=== PATIENT | female | born 1945 | race Hispanic/Latino ===

== ENCOUNTER 2017-06-19 17:19 | Emergency (ER) | payer OTHER ==
[~2017-06-19] VITALS: Ht 157.5 cm; Wt 83.5 kg
[2017-06-19 18:19] LABS: ABSOLUTE BASOPHIL COUNT 0 /CUMM (0.0-0.2); ABSOLUTE EOSINOPHIL COUNT 0 /CUMM (0.0-0.7); ABSOLUTE GRANULOCYTE CT 2.1 /CUMM (1.4-6.5); ABSOLUTE LYMPH COUNT 1.1 /CUMM (1.2-3.4); ABSOLUTE MONOCYTE COUNT 0.2 /CUMM (0.10-0.60); BASOPHIL % 1.1 % (0.0-2.0); EOSINOPHIL % 1.2 % (0-5); GRANULOCYTE % 59.3 % (42.2-75.2); HEMATOCRIT 40.5 % (37-47); MEAN CORPUSCULAR HGB 28.1 PG (27.0-31.0); MEAN CORPUSCULAR HGB CONC 34.8 G/DL (33.0-37.0); MEAN CORPUSCULAR VOLUME 80.7 FL (81.0-99.0); MEAN PLATELET VOLUME 7.7 FL (7.4-10.4); PLATELET COUNT 186 /CUMM (130-400); RBC DISTRIBUTION WIDTH 14.5 % (11.5-14.5); RED BLOOD CELL CT 5.01 /CUMM (4.20-5.40); WHITE BLOOD CELL COUNT 3.6 /CUMM (4.8-10.8)
--- NOTE | 2017-06-19 20:39 | ED GENERAL ADULT ---
History of Present Illness General Chief Complaint: General Adult Stated Complaint: PT WAS SIB WALK IN FOR HYPERTENSION 210/100 Source: patient, family Exam Limitations: no limitations Vital Signs & Intake/Output Vital Signs & Intake/Output Vital Signs Date Time Temp Pulse Resp B/P B/P Pulse O2 O2 Flow FiO2 Mean Ox Delivery Rate 06/19 2228 Room Air 06/19 2228 97.6 76 16 172/88 97 Room Air 06/19 2100 147/66 06/19 1746 98.4 70 20 198/84 97 Room Air Allergies Uncoded Allergies: PCN (Intermediate, RASH 06/19/17) Triage Note: SEEN AT [facility] FOR CAT SCRATCH TO LEFT LOWER LEG. SENT FOR HIGH BLOOD PRESSURE, 230/110. DENIES HEADACHE, DIZZINESS OR CHEST PAIN. Triage Nurses Notes Reviewed? yes Onset: Just prior to arrival Duration: day(s): Timing: recent history Injury Environment: urgent care Severity: mild No Modifying Factors: none HPI: Patient is a 71-year-old female with history of diabetes, hypertension presenting to our emergency Department from [facility] for hypertension. Patient was seen and evaluated at [facility] for a cat scratch on her left lower leg in about one week ago. She reports that it was from a neighborhood cat that roams the street. Unsure of vaccine status of the. Patient is up-to- date with tetanus. When patient arrives admin express her blood pressure was extremely elevated so they decided to send her in for evaluation. Patient denies headaches visual changes chest pain palpitations or shortness of breath. Patient has history of chest pressure goes up when she goes to the doctor's office. Patient recently moved to [place] from [place]. Currently establishing primary care physicians. Patient denies any weakness or malaise no numbness or tingling. Denies confusion. Patient reports she's had called her medications this morning. (Tatyana Hinkle) Past History Travel History Traveled to [place] past 21 day No Medical History Any Pertinent Medical History? see below for history EENT: cataracts Cardiovascular: hypertension Endocrine: diabetes Surgical History Surgical History: cataract removal Psychosocial History What is your primary language Sami Tobacco Use: Never used ETOH Use: denies use Family History Hx Contributory? No (Tatyana Hinkle) Review of Systems Review of Systems Constitutional: Reports: no symptoms. Comments Review of systems: See HPI, All other systems negative. Constitutional, no chills fever or weight loss HEENT: No visual changes no sore throat no congestion Cardiovascular: No chest pain ,palpitation , orthopnea or ankle swelling Skin, no jaundice Respiratory: No dyspnea cough sputum or hemoptysis GI: No nausea no vomiting : No dysuria No hematuria Muscle skeletal: no back pain, no neck pain, Neurologic: No numbness no confusion, no headaches Psych: No stress anxiety or depression,. Heme/endocrine: No bruising no bleeding no polyuria or polydipsia Immunology: No splenectomy or history of AIDS (Tatyana Hinkle) Physical Exam Physical Exam General Appearance: well developed/nourished, no apparent distress, alert, awake , comfortable Comments: Well-developed well-nourished person in no acute distress HEENT: Normal EENT exam, extraocular motion intact, no nystagmus. Pupils equally round and reactive to light and accommodation. Nose is atraumatic. External auditory canal and Tympanic membranes clear. Pharynx normal. No swelling or edema. No hemotympanum noted. Funduscopic: Extremely limited secondary to no dilation prior to exam and history of cataract surgery, no obvious retinal detachment appreciated. Unclear if patient has hypertensive retinopathy. Neck: Normal inspection. Back: Nontender Cardiovascular: Regular rate and rhythm, unable to appreciate any murmurs on auscultation Respiratory: Chest nontender. No respiratory distress.breath sounds clear to auscultation bilaterally Abdomen: Soft, nontender nondistended, no appreciable organomegaly. Normal bowel sounds. No ascites Extremity: No edema, no calf tenderness to palpation, normal and equal pulses. Full range of motion of left lower extremities without difficulty or pain. Neuro: Alert oriented x3, motor sensory normal, cranial nerves II through XII grossly intact. Cerebellar testing is unremarkable. Walks with steady gait. Skin: 3-4 superficial lacerations noted on the lateral aspect of the left ankle, minimal surrounding erythema. No purulent drainage noted. Nontender to palpation. No appreciable rash on exposed skin, skin is warm and dry. Psych: Mood and affect is normal, memory and judgment is normal. Core Measures ACS in differential dx? Yes CVA/TIA Diagnosis: No Sepsis Present: No Sepsis Focused Exam Completed? No (Tatyana Hinkle) Progress Differential Diagnoses I considered the following diagnoses in my evaluation of the patient: Hypertensive urgency, hypertension, cellulitis, need for rabies prophylaxis Plan of Care: Orders Procedure Date/time Status Telemetry/Toolsmith 06/19 2049 Active TROPONIN LEVEL 06/19 1744 Complete MAGNESIUM 06/19 1744 Complete COMPREHENSIVE METABOLIC PANEL 06/19 1744 Complete CBC WITHOUT DIFFERENTIAL 06/19 1744 Complete EKG 06/19 1744 Active Laboratory Tests 06/19/17 1809: Anion Gap 12, Estimated GFR > 60, BUN/Creatinine Ratio 18.3, Glucose 126 H, Calcium 9.8, Magnesium 1.8, Total Bilirubin 1.0, AST 25, ALT 29, Alkaline Phosphatase 118, Troponin I < 0.01, Total Protein 7.0, Albumin 4.4, Globulin 2.6 , Albumin/Globulin Ratio 1.7, CBC w Diff NO MAN DIFF REQ, RBC 5.01, MCV 80.7 L, MCH 28.1, MCHC 34.8, RDW 14.5, MPV 7.7, Gran % 59.3, Lymphocytes % 31.8, Monocytes % 6.6, Eosinophils % 1.2, Basophils % 1.1, Absolute Granulocytes 2.1, Absolute Lymphocytes 1.1 L, Absolute Monocytes 0.2, Absolute Eosinophils 0, Absolute Basophils 0 06/19/171744: Urine Color Cancelled, Urine Clarity Cancelled, Urine pH Cancelled, Ur Specific [place] Cancelled, Urine Protein Cancelled, Urine Ketones Cancelled, Urine Nitrite Cancelled, Urine Bilirubin Cancelled, Urine Urobilinogen Cancelled, Ur Leukocyte Esterase Cancelled, Ur Microscopic Cancelled, Urine Hemoglobin Cancelled, Urine Glucose Cancelled 06/19/2017 9:45:35 PM repeat blood pressure is 140s over 60s. Patient still asymptomatic. Neurovascularly intact. EKG is sinus rhythm. Patient has long- standing history of hypertension. Given PCP cardiology to follow up with. She will return for rabies vaccination. Discussed with Dr. Ruby and he agrees with plan. Diagnostic Imaging: Viewed by Me: Radiology Read. Discussed w/RAD: Radiology Read. Radiology Impression: PATIENT: MIRA BUAM PRESENT AGE : 71 PATIENT ACCOUNT NO: [id number] : 45 LOCATION: [facility] ORDERING PHYSICIAN: Tatyana RODRIGUEZ SERVICE DATE: 06/19/17-2049 EXAM TYPE: RAD - XRY-PORTABLE CHEST XRAY EXAMINATION: XR PORTABLE CHEST CLINICAL INFORMATION: Hypertension COMPARISON: None TECHNIQUE: Portable AP semierect view of the chest was obtained. FINDINGS: No significant abnormality is noted involving the lungs, mediastinum, bony thorax or soft tissues. IMPRESSION: Unremarkable examination. The heart is borderline enlarged. DICTATED BY: Mark Spencer MD DATE/TIME DICTATED:06/19/172114 STUDIO TECHNICIAN:CATALINO DATE/TIME TRANSCRIBED:2114 CONFIDENTIAL, DO NOT COPY WITHOUT APPROPRIATE AUTHORIZATION. < Electronically signed in Other Vendor System> SIGNED BY: Mark Spencer MD 06/19/172123 Initial ED EKG: NSR (69 bpm) (Tatyana Hinkle) Departure Departure Time of Disposition: 2126 Disposition: HOME OR SELF CARE Condition: Stable Clinical Impression Primary Impression: Hypertensive urgency Secondary Impressions: Cat scratch, Need for prophylactic vaccination against rabies Referrals: Bernice Toney MD Patient Has No Primary Care Dr (PCP/Family) Additional Instructions: Return to the emergency department on: Saturday, June 22 for your second rabies vaccine June 26 for your third rabies vaccine Saturday, July 06 for the last rabies vaccination. Take Augmentin as previously prescribed to help with Scratch. Return if he develop any fevers increased pain, increased redness or discharge from the area. Make sure to continue all previously prescribed medications for hypertension. You were given follow-up contact information for a medical billing coordinator as well as a primary care physician. Departure Forms: Customer Survey General Discharge Information (Tatyana Hinkle) PA/ELECTRICAL MAINTENANCE MECHANIC Co-Sign Statement Statement: ED Attending supervision documentation- [] I saw and evaluated the patient. I have also reviewed all the pertinent lab results and diagnostic results. I agree with the findings and the plan of care as documented in the PA's/ELECTRICAL MAINTENANCE MECHANIC's documentation. [x] I have reviewed the ED Record and agree with the PA's/ELECTRICAL MAINTENANCE MECHANIC's documentation. [] Additions or exceptions (if any) to the PAs/ELECTRICAL MAINTENANCE MECHANIC's note and plan are summarized below: [] (Flori WHYTE,Suhail Yost) Critical Care Note Critical Care Note Critical Care Time: 30-74 min (Tatyana Hinkle)
--- NOTE | 2017-06-19 21:24 | RADIOLOGY REPORT ---
EXAMINATION: XR PORTABLE CHEST CLINICAL INFORMATION: Hypertension COMPARISON: None TECHNIQUE: Portable AP semierect view of the chest was obtained. FINDINGS: No significant abnormality is noted involving the lungs, mediastinum, bony thorax or soft tissues. IMPRESSION: Unremarkable examination. The heart is borderline enlarged.
[2017-06-19 22:29] VITALS: BP 172/88
== END 2017-06-19 22:30 ==
LOC: ERH 17:19
PROVIDERS: Physician Assistant Medical
DX: S80.812A Abrasion, left lower leg, initial encounter (principal); I10 Essential (primary) hypertension; W55.03XA Scratched by cat, initial encounter; Y92.9 Unspecified place or not applicable; Y93.9 Activity, unspecified
CPT/HCPCS: 71045; 90376; 90471; 93005; 93010

== ENCOUNTER 2017-06-22 11:32 | Emergency (ER) | payer OTHER, MEDICARE ==
[~2017-06-22] VITALS: Ht 157.5 cm; Wt 83.5 kg
[2017-06-22 12:27] VITALS: BP 163/78
--- NOTE | 2017-06-22 12:38 | ED GENERAL ADULT ---
History of Present Illness General Chief Complaint: General Adult Stated Complaint: "TO GET SECOND RABIES SHOT." Source: patient, old records Exam Limitations: no limitations Vital Signs & Intake/Output Vital Signs & Intake/Output Vital Signs Date Time Temp Pulse Resp B/P B/P Pulse O2 O2 Flow FiO2 Mean Ox Delivery Rate 06/22 1234 Room Air 06/22 1227 96.6 73 16 163/78 98 ED Intake and Output 06/23 0000 06/22 1200 Intake Total Output Total Balance Patient 184 lb Weight Weight Reported by Patient Measurement Method Allergies Coded Allergies: Penicillins (Intermediate, RASH 06/22/17) Triage Note: PT TO ER TO GET 2ND RABIES SHOT. PT HAS NO COMPLAINTS Triage Nurses Notes Reviewed? yes Onset: Abrupt Duration: week(s): (7), better, gone now Timing: single episode today Injury Environment: home No Modifying Factors: none LMP (ages 10-50): unknown : No Patient currently breastfeeds: No HPI: 71-year-old female past medical history of hypertension and diabetes results for her second rabies shot. Patient was seen here several days ago. Being scratched by a cat on her left ankle. She received rabies vaccine and immunoglobulin. Patient is feeling well and is no concern she denies any adverse reactions to the vaccine. The scratches healing well there is no spurting redness swelling pain discharge or fevers. (Yeison Hernandez) Past History Travel History Traveled to [place] past 21 day No Medical History Any Pertinent Medical History? see below for history EENT: cataracts Cardiovascular: hypertension Endocrine: diabetes Surgical History Surgical History: cataract removal Psychosocial History What is your primary language Vietnamese Tobacco Use: Never used Family History Hx Contributory? No (Yeison Hernandez) Review of Systems Review of Systems Constitutional: Reports: no symptoms. EENTM: Reports: no symptoms. Respiratory: Reports: no symptoms. Cardiovascular: Reports: no symptoms. GI: Reports: no symptoms. Genitourinary: Reports: no symptoms. Musculoskeletal: Reports: no symptoms. Skin: Reports: see HPI (CAT SCRATCH). Neurological/Psychological: Reports: no symptoms. Hematologic/Endocrine: Reports: no symptoms. Immunologic/Allergic: Reports: no symptoms. All Other Systems: Reviewed and Negative (Yeison Hernandez) Physical Exam Physical Exam General Appearance: well developed/nourished, no apparent distress, alert, awake Head: atraumatic, normal appearance Eyes: Bilateral: normal appearance, PERRL, EOMI. Ears, Nose, Throat: normal pharynx, normal ENT inspection, hearing grossly normal Neck: normal inspection, supple, full range of motion Respiratory: normal breath sounds, chest non-tender, no respiratory distress, lungs clear Cardiovascular: regular rate/rhythm, normal peripheral pulses Peripheral Pulses: 2+ radial (R), 2+ radial (L) Gastrointestinal: soft, non-tender Back: normal inspection, normal range of motion Extremities: normal inspection, normal range of motion, no edema Neurologic/Psych: no motor/sensory deficits, awake, alert, oriented x 3, normal gait Skin: intact, normal color, warm/dry Lymphatic: no anterior cervical constantino Core Measures ACS in differential dx? No CVA/TIA Diagnosis: No Sepsis Present: No Sepsis Focused Exam Completed? No (Yeison Hernandez) Progress Differential Diagnoses I considered the following diagnoses in my evaluation of the patient: [ Cellulitis, vaccine REACTION ] Plan of Care: Patient seen and evaluated. She has a cat scratch for which she received rabies vaccine 4. Her second rabies vaccine was given today. She was monitored for signs of adverse reaction none were detected. She is feeling well as no concerns they scratch is healing well. Advised patient to return on day 7 for next vaccine. Discussed return precautions case discussed with Dr. Abel he agrees. Initial ED EKG: none (Yeison Hernandez) Departure Departure Disposition: HOME OR SELF CARE Condition: Stable Clinical Impression Primary Impression: Need for rabies vaccination Referrals: Patient Has No Primary Care Dr (PCP/Family) Additional Instructions: RETURN ON DAY 7 FOR THIRD RABIES VACCINE. Departure Forms: Customer Survey General Discharge Information (Yeison Hernandez) PA/VENUE COORDINATOR Co-Sign Statement Statement: ED Attending supervision documentation- [] I saw and evaluated the patient. I have also reviewed all the pertinent lab results and diagnostic results. I agree with the findings and the plan of care as documented in the PA's/VENUE COORDINATOR's documentation. [x] I have reviewed the ED Record and agree with the PA's/VENUE COORDINATOR's documentation. unfortunately, pt left prior to my evaluation. [] Additions or exceptions (if any) to the PAs/VENUE COORDINATOR's note and plan are summarized below: [] (Page WHYTE,Jamin Campa) Critical Care Note Critical Care Note Critical Care Time: non-applicable (Yeison Hernandez)
== END 2017-06-22 12:48 ==
LOC: ERH 11:32
DX: Z20.3 Contact with and (suspected) exposure to rabies (principal)
CPT/HCPCS: 90471; 99281